=== PATIENT | female | born 1945 | race Caucasian/White ===

== ENCOUNTER → 2018-05-20 | Outpatient (CLI) | payer OTHER | LOC: RAD 05-06 13:32 | DX: Z12.31 Encounter for screening mammogram for malignant neoplasm of breast (principal) ==

== ENCOUNTER → 2019-05-17 | Outpatient (CLI) | payer OTHER | LOC: RAD 10:06 | DX: Z12.31 Encounter for screening mammogram for malignant neoplasm of breast (principal) ==

== ENCOUNTER → 2020-12-13 | Outpatient (CLI) | payer OTHER | LOC: RAD 13:03 | DX: N64.4 Mastodynia (principal) ==

== ENCOUNTER → 2021-05-16 | Outpatient (CLI) | payer OTHER | LOC: BC 10:22 | PROVIDERS: ATTEND Internal Medicine | DX: N64.4 Mastodynia (principal) ==